=== PATIENT | male | born 1950 | race Caucasian/White ===

== ENCOUNTER 2022-09-22 09:45 | Day surgery (SDC) | payer MEDICARE ==
[~2022-09-22] VITALS: Ht 157.5 cm; Wt 62.5 kg
[~2022-09-22 09:45] MED LIST: ATEN50 PO; Aspir 8181 MG; EZET10 PO; LISI20 PO; MECL25 PO; OMEP20ER PO; POTCHL20ER PO; [UNRECOGNIZED DRUG - REMARK]
--- NOTE | 2022-09-22 10:15 | NUR ---
REPORT FINISHING COLON PREP AT 0330 TODAY WITH CLEAR RESULTS. Patient States Post-Procedure ride home has been arranged with his , Елена, who is at bedside with patient.
--- NOTE | 2022-09-22 11:13 | NUR ---
09/22/22 Anaid Saunders HISTORY, CHART, MEDICATIONS AND ALLERGIES REVIEWED BEFORE START OF PROCEDURE. PATIENT CONFIRMS NPO STATUS AND AGREES WITH SCHEDULED PROCEDURE. 3-LEAD EKG REVIEWED WITH PHYSICIAN PRIOR TO START OF PROCEDURE. MONITOR INTACT WITH CONTINUOUS PULSE OXIMETRY,CAPNOGRAPHY, 3-LEAD EKG, INTERMITTENT BP. SUPPLEMENTAL O2 TO BE TITRATED THROUGHOUT PROCEDURE TO MAINTAIN O2 SATURATION ABOVE 90%. PATIENT DETERMINED TO BE ASA APPROPRIATE FOR PROPOFOL SEDATION PRIOR TO START OF PROCEDURE BY DR. BRENNAN.
--- NOTE | 2022-09-22 12:07 | NUR ---
REPORT RECEIVED FROM FORREST MARY RN. PT DENIES PAIN OR DISCOMFORT AT THIS TIME. PT REQUESTING PO FLUIDS AND TOLERATING THEM WELL. PT ABLE TO REPOSITION SELF IN BED.
--- NOTE | 2022-09-22 12:32 | NUR ---
Patient up to Ambulate independently. Gait steady. VSS. Discharge instructions reviewed with patient. Patient verbalizes understanding. Copy given to patient to take home. Patient States Post-Procedure ride home has been arranged. Discharged via wheelchair to private car for ride home. PT BELONGINGS RETURNED TO PT.
== END 2022-09-22 22:44 | disposition home or self-care (01) ==
LOC: ORSCMMR 09:45
PROVIDERS: Internal Medicine Gastroenterology
PROC: 0DBL8ZX Excision of Transverse Colon, Via Natural or Artificial Opening Endoscopic, Diagnostic (ICD-10-PCS; principal; 2022-09-22 10:30)
PROC: 0DBN8ZX Excision of Sigmoid Colon, Via Natural or Artificial Opening Endoscopic, Diagnostic (ICD-10-PCS; principal; 2022-09-22 10:30)
PROC: 0DBM8ZX Excision of Descending Colon, Via Natural or Artificial Opening Endoscopic, Diagnostic (ICD-10-PCS; principal; 2022-09-22 10:30)
DX: Z12.11 Encounter for screening for malignant neoplasm of colon (principal); Z86.010 Personal history of colon polyps; D12.3 Benign neoplasm of transverse colon; D12.4 Benign neoplasm of descending colon; D12.5 Benign neoplasm of sigmoid colon; I10 Essential (primary) hypertension; K21.9 Gastro-esophageal reflux disease without esophagitis; E78.00 Pure hypercholesterolemia, unspecified; Z79.899 Other long term (current) drug therapy; Z79.82 Long term (current) use of aspirin
CPT/HCPCS: 88305; J2704; J7120